=== PATIENT | male | born 1965 | race Caucasian/White ===

== ENCOUNTER 2020-07-06 19:38 | Inpatient (IN) ==
[2020-07-06] MEDS ORDERED: ACETAMINOPHEN 500 MG TABLET PO STA (19:47)
[2020-07-06] MEDS ORDERED: SODIUM CHLORIDE 0.9% 1,000 ML IV STA (19:56)
[2020-07-06 21:02] LABS: Basophils % 0.2 % (0.0-0.8); Eosinophils # 0.1 10*3/uL (0.0-0.87); Eosinophils % 0.6 % (0.00-10.9); Hematocrit 42.1 VOL% (42.0-52.0); Immature Granulocytes % 1.1 %; Immature Granulocytes Absolute 0.18 #; Lymphocytes # 1.7 10*3/uL (1.4-4.0); Lymphocytes % 10.2 % (21.2-54.2); Mean Corpuscular HGB Conc 33.3 GM/DL (32-36); Mean Corpuscular Volume 90.1 FL (87-102); Mean Platelet Volume 10.4 FL (9.6-12.0); Monocytes % 7.7 % (1.7-12.7); Neutrophils % 80.2 % (38.7-73.9); Platelet Count 365 T/CUMM (130-400); Red Blood Count 4.67 MC/CUMM (3.8-5.5); Red Cell Distribution Width 14.5 % (9.3-17.3); White Blood Count 16.8 T/CUMM (4-12)
[2020-07-06] MEDS ORDERED: ONDANSETRON 4 MG/2 ML VIAL IV STA (21:05)
[2020-07-06] MEDS ORDERED: MORPHINE 4 MG/1 ML VIAL IV STA (21:05)
[2020-07-06 21:11] LABS: Bilirubin,Urine Negative (Negative); Blood, Urine Negative (Negative); Glucose,Urine (UA) Negative (Negative); Ketones,Urine Negative (Negative); Mucus,Urine Occasional /LPF (Occasional); Nitrite,Urine Negative (Negative); Protein,Urine 30 MG/DL; RBC,Urine 1 /HPF (0-4); Urine Appearance CLEAR (Clear); Urine Color Yellow (Yellow); Urine Specific Gravity 1.019 (1.001-1.035); Urine Urobilinogen < 2.0 EU/DL (0.2-1.0); WBC,Urine 1 /HPF (0-6)
[2020-07-06 21:16] LABS: Albumin 2.9 G/DL (3.4-5.0); Bilirubin,Total 0.6 MG/DL (0.2-1.0); Calcium 8.3 MG/DL (8.5-10.1); Osmolality,Calculated 276.7 MOS/KG (273-304); Potassium 4.6 MMOL/L (3.5-5.1)
[2020-07-06] MEDS ORDERED: PIPERACILLIN/TAZOBACTAM 3,375 MG in SODIUM CHLORIDE 0.9% 100 ML IV STA (22:31)
[2020-07-06] MEDS ORDERED: ONDANSETRON 4 MG/2 ML VIAL IV PRN (22:37)
[2020-07-06] MEDS: HYDROmorphone 2 MG/1 ML VIAL IV PRN (23:51)
[2020-07-07] MEDS ORDERED: INFLUENZA VIRUS VACCINE 0.5 ML SYRINGE IM ONE (00:14)
[2020-07-07] MEDS: DEXTROSE 5% NACL 0.45% 1,000 ML IV SCH ×2 (00:19→09:21)
[2020-07-07] MEDS: metroNIDAZOLE INJ 500 MG in PREMIX 1 EACH IV SCH ×2 (00:20→08:41)
[2020-07-07] MEDS: HYDROmorphone 2 MG/1 ML VIAL IV PRN ×4 (03:20→20:51)
[2020-07-07] MEDS: PIPERACILLIN/TAZOBACTAM 3,375 MG in SODIUM CHLORIDE 0.9% 100 ML IV SCH ×3 (05:01→22:27)
[2020-07-07 05:51] LABS: Basophils # 0.1 10*3/uL (0.0-0.2); Basophils % 0.2 % (0.0-0.8); Eosinophils # 0.1 10*3/uL (0.0-0.87); Eosinophils % 0.3 % (0.00-10.9); Hematocrit 42.8 VOL% (42.0-52.0); Hemoglobin 13.6 GM/DL (14.0-18.0); Immature Granulocytes % 1.1 %; Immature Granulocytes Absolute 0.24 #; Lymphocytes % 9.6 % (21.2-54.2); Mean Corpuscular HGB Conc 31.8 GM/DL (32-36); Mean Platelet Volume 10.3 FL (9.6-12.0); Monocytes % 9.2 % (1.7-12.7); Neutrophils % 79.6 % (38.7-73.9); Platelet Count 367 T/CUMM (130-400); Red Cell Distribution Width 14.7 % (9.3-17.3); White Blood Count 21.1 T/CUMM (4-12)
[2020-07-07 06:10] LABS: Calcium 8.1 MG/DL (8.5-10.1); Osmolality,Calculated 273.8 MOS/KG (273-304); Potassium 4.3 MMOL/L (3.5-5.1)
[2020-07-07 06:14] LABS: Band Neutrophils 6 % (0-10); Hypochromasia 1+; Lymphocytes 9 % (20-55); Segmented Neutrophils 78 % (50-85); Total Cells Counted 100
[2020-07-07 06:15] LABS: Microcytosis 1+
[2020-07-07] MEDS: ACETAMINOPHEN 325 MG TABLET PO PRN ×3 (08:25→20:43)
[2020-07-07] MEDS: PANTOPRAZOLE 40 MG VIAL IV SCH (08:25)
[2020-07-07] MEDS ORDERED: HYDROmorphone 2 MG/1 ML VIAL IV PRN (11:06)
[2020-07-07] MEDS ORDERED: ONDANSETRON 4 MG/2 ML VIAL IV PRN (11:06)
[2020-07-07] MEDS ORDERED: GLUCAGON 1 MG VIAL IM PRN (11:08)
[2020-07-07] MEDS ORDERED: DEXTROSE 50% 25 GM/50 ML VIAL IV PRN (11:08)
[2020-07-07] MEDS: LACTATED RINGERS 1,000 ML IV SCH (11:44)
[2020-07-07] MEDS: INSULIN LISPRO 100 UNIT/ML SUBCUT SCH ×2 (12:04→16:04)
[2020-07-07] MEDS ORDERED: fentaNYL 100 MCG/2 ML VIAL IV ONE (12:23)
[2020-07-07] MEDS ORDERED: DIAZEPAM 5 MG TABLET PO ONE (12:23)
[2020-07-07] MEDS ORDERED: MIDAZOLAM 2 MG/2 ML VIAL IV ONE (12:23)
[2020-07-07] MEDS ORDERED: SODIUM CHLORIDE 0.45% 1,000 ML IV SCH (12:30)
[2020-07-07] MEDS: HydrOXYzine PAMOATE 25 MG CAPSULE PO SCH (20:42)
[2020-07-07] MEDS: LOSARTAN 50 MG TABLET PO SCH (20:50)
[2020-07-08] MEDS: HYDROmorphone 2 MG/1 ML VIAL IV PRN ×5 (01:47→20:46)
[2020-07-08] MEDS: PIPERACILLIN/TAZOBACTAM 3,375 MG in SODIUM CHLORIDE 0.9% 100 ML IV SCH ×3 (06:15→22:21)
[2020-07-08] MEDS: LACTATED RINGERS 1,000 ML IV SCH ×2 (06:17→22:21)
[2020-07-08] MEDS: INSULIN LISPRO 100 UNIT/ML SUBCUT SCH ×3 (07:27→16:12)
[2020-07-08 07:53] LABS: Basophils % 0.2 % (0.0-0.8); Eosinophils # 0.1 10*3/uL (0.0-0.87); Eosinophils % 0.9 % (0.00-10.9); Hemoglobin 12.9 GM/DL (14.0-18.0); Immature Granulocytes % 0.8 %; Immature Granulocytes Absolute 0.11 #; Lymphocytes # 0.9 10*3/uL (1.4-4.0); Lymphocytes % 5.8 % (21.2-54.2); Mean Corpuscular HGB Conc 32.3 GM/DL (32-36); Mean Corpuscular Volume 91.3 FL (87-102); Mean Platelet Volume 9.8 FL (9.6-12.0); Monocytes % 6.6 % (1.7-12.7); Neutrophils % 85.7 % (38.7-73.9); Platelet Count 315 T/CUMM (130-400); Red Blood Count 4.38 MC/CUMM (3.8-5.5); Red Cell Distribution Width 14.5 % (9.3-17.3); White Blood Count 14.6 T/CUMM (4-12)
[2020-07-08 08:11] LABS: Calcium 8.4 MG/DL (8.5-10.1); Osmolality,Calculated 267.2 MOS/KG (273-304)
[2020-07-08] MEDS: PANTOPRAZOLE 40 MG VIAL IV SCH (09:07)
[2020-07-08] MEDS: HydrOXYzine PAMOATE 25 MG CAPSULE PO SCH (20:46)
[2020-07-08] MEDS: LOSARTAN 50 MG TABLET PO SCH (20:46)
[2020-07-09] MEDS: HYDROmorphone 2 MG/1 ML VIAL IV PRN (00:42)
[2020-07-09] MEDS: PIPERACILLIN/TAZOBACTAM 3,375 MG in SODIUM CHLORIDE 0.9% 100 ML IV SCH (06:27)
[2020-07-09 08:00] LABS: Basophils % 0.3 % (0.0-0.8); Eosinophils # 0.2 10*3/uL (0.0-0.87); Eosinophils % 3.3 % (0.00-10.9); Immature Granulocytes % 1.2 %; Immature Granulocytes Absolute 0.08 #; Lymphocytes % 14.3 % (21.2-54.2); Mean Corpuscular HGB Conc 33.3 GM/DL (32-36); Mean Corpuscular Volume 90.3 FL (87-102); Mean Platelet Volume 9.9 FL (9.6-12.0); Monocytes % 12.9 % (1.7-12.7); Platelet Count 364 T/CUMM (130-400); Red Blood Count 4.32 MC/CUMM (3.8-5.5); Red Cell Distribution Width 14.4 % (9.3-17.3); White Blood Count 6.7 T/CUMM (4-12)
[2020-07-09] MEDS: PANTOPRAZOLE 40 MG VIAL IV SCH (09:41)
[2020-07-09] MEDS: INSULIN LISPRO 100 UNIT/ML SUBCUT SCH ×3 (10:04→16:32)
[2020-07-09] MEDS: CIPROFLOXACIN 500 MG TABLET PO SCH (16:31)
[2020-07-09] MEDS: metroNIDAZOLE 500 MG TABLET PO SCH (18:03)
[2020-07-09] MEDS: LOSARTAN 50 MG TABLET PO SCH (21:23)
[2020-07-10] MEDS: metroNIDAZOLE 500 MG TABLET PO SCH ×3 (00:24→11:26)
[2020-07-10 08:07] LABS: Basophils % 0.5 % (0.0-0.8); Eosinophils # 0.2 10*3/uL (0.0-0.87); Eosinophils % 4.1 % (0.00-10.9); Hematocrit 39.5 VOL% (42.0-52.0); Hemoglobin 12.9 GM/DL (14.0-18.0); Immature Granulocytes % 1.4 %; Immature Granulocytes Absolute 0.08 #; Lymphocytes # 1.3 10*3/uL (1.4-4.0); Lymphocytes % 22.2 % (21.2-54.2); Mean Corpuscular HGB Conc 32.7 GM/DL (32-36); Mean Platelet Volume 9.8 FL (9.6-12.0); Monocytes % 9.8 % (1.7-12.7); Platelet Count 402 T/CUMM (130-400); Red Blood Count 4.34 MC/CUMM (3.8-5.5); Red Cell Distribution Width 14.4 % (9.3-17.3); White Blood Count 5.8 T/CUMM (4-12)
[2020-07-10 08:32] LABS: Band Neutrophils 6 % (0-10); Eosinophils 4 % (0-10); Hypochromasia Slight; Lymphocytes 19 % (20-55); Segmented Neutrophils 64 % (50-85); Total Cells Counted 100
[2020-07-10 08:33] LABS: Microcytosis 1+; Platelet Estimate Increased
[2020-07-10] MEDS: PANTOPRAZOLE 40 MG VIAL IV SCH (11:20)
[2020-07-10] MEDS: CIPROFLOXACIN 500 MG TABLET PO SCH (11:20)
[2020-07-10] MEDS: INSULIN LISPRO 100 UNIT/ML SUBCUT SCH (11:21)
[2020-07-10 11:31] VITALS: BP 132/84
== END 2020-07-10 11:50 | disposition home health service (06) | DRG 373 ==
LOC: N.ED 19:38 → N.EDINP 22:35 → N.3E 23:14
PROVIDERS: ADMIT Student in an Organized Health Care Education/Training Program; ATTEND Student in an Organized Health Care Education/Training Program